=== PATIENT | male | born 1965 | race Two or more races ===

== ENCOUNTER 2025-03-11 16:12 | Emergency (ER) | payer MEDICAID, OTHER ==
[~2025-03-11] VITALS: Ht 152.4 cm; Wt 68.1 kg
[2025-03-11 16:32] VITALS: PULSE 101; RESP 28; O2SAT 95
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
--- NOTE | 2025-03-11 17:39 | DVH ---
CT HEAD WITHOUT CONTRAST Indication: [facility] EXAM DATE: 03/11/2025 04:59 PM COMPARISON: None TECHNIQUE: CT of the head without intravenous contrast. RADIATION DOSE: CTDIvol: 54 mGy, DLP: 864 mGy*cm FINDINGS: There is no intracranial hemorrhage. There is no extra-axial fluid, mass, mass effect or midline shift. The ventricles are midline and normal in size. Basilar cisterns are patent. Bilateral cerebellar encephalomalacia. Mild subcortical white matter chronic microvascular ischemic changes. Mastoids well pneumatized. Mucosal thickening of the bilateral maxillary sinuses. Imaged portion of the orbits are unremarkable. IMPRESSION: No intracranial hemorrhage or mass effect. Bilateral cerebellar encephalomalacia.
--- NOTE | 2025-03-11 17:51 | DVH ---
EXAM: CT CERVICAL WITHOUT CONTRAST HISTORY: [facility] COMPARISON: CT HEAD WITHOUT CONTRAST on DOS: 03/11/25 CTDIvol 17.36 mGy, DLP 478.48 mGy*cm. TECHNIQUE: Multiple axial CT images of the spine were obtained using bone algorithm. Axial and coronal reformatting was done. Bone and soft tissue windows were reviewed. FINDINGS: No acute fracture or subluxation in the cervical spine. There are degenerative changes at C5-6, C6-7, and C7-T1 with disc osteophyte complexes and uncovertebral hypertrophy, and facet joint sclerosis. The prevertebral soft tissues and posterior soft tissues of the neck are unremarkable. The visualized lung apices are clear. IMPRESSION: No acute fracture or subluxation in the cervical spine. Multilevel degenerative changes..
[2025-03-11 18:00] VITALS: BP 134/75; PULSE 95; RESP 28; TEMP 98.4; O2SAT 97
[2025-03-11] MEDS ORDERED: IBUP-1455 PO (18:34)
[2025-03-11] MEDS ORDERED: CYCL-837 PO (18:34)
[2025-03-11] MEDS: HYDROcodone-ACET 5/325MG TAB PO ONE (18:41)
== END 2025-03-11 19:10 | disposition home or self-care (01) ==
LOC: EDBD 16:12 → ER 16:12
DX: S13.4XXA Sprain of ligaments of cervical spine, initial encounter (principal); G93.89 Other specified disorders of brain; I10 Essential (primary) hypertension; V44.5XXA Car driver injured in collision with heavy transport vehicle or bus in traffic accident, initial encounter; Y93.89 Activity, other specified; Y92.410 Unspecified street and highway as the place of occurrence of the external cause; Y99.8 Other external cause status
CPT/HCPCS: 70450; 72125